=== PATIENT | male | born 1955 | race Caucasian/White ===

== ENCOUNTER 2016-11-23 22:41 | Emergency (ER) | payer OTHER ==
[~2016-11-23] VITALS: Ht 172.7 cm; Wt 81.8 kg
[2016-11-24 00:40] VITALS: BP 155/94
== END 2016-11-24 00:47 | disposition home or self-care (01) ==
LOC: EME 22:41
DX: R51 Headache (principal); H53.8 Other visual disturbances; M54.2 Cervicalgia; R42 Dizziness and giddiness; V49.40XA Driver injured in collision with unspecified motor vehicles in traffic accident, initial encounter; Y92.410 Unspecified street and highway as the place of occurrence of the external cause
CPT/HCPCS: 70450; 99281; 99283